=== PATIENT | female | born 1985 | race Asian ===

== ENCOUNTER → 2018-01-30 11:48 | Outpatient (CLI) | payer BC, SELFPAY ==
--- NOTE | 2018-01-30 | DI.RAD.S_ITS ---
PROCEDURE: XR CHEST 2V INDICATIONS: 32 year-old female with dyspnea. TECHNIQUE: 2 views of the chest were acquired. COMPARISON: None. FINDINGS: Surgical changes and devices: None. Lungs and pleura: No pleural effusions or pneumothorax. Lungs are clear. Mediastinum: Mediastinal contours are normal. Heart size is normal. Bones and chest wall: No suspicious bony abnormalities. Soft tissues appear unremarkable. IMPRESSION: No acute cardiopulmonary disease. Dictated by: Aidan Sol M.D. on 01/30/2018 at 12:22 Approved by: Aidan Sol M.D. on 01/30/2018 at 12:22
== END ==
PROVIDERS: Family Provider Family Medicine; PCP Family Medicine; Visit Provider Family Medicine
DX: R06.00 Dyspnea, unspecified (principal)
CPT/HCPCS: 71046

== ENCOUNTER → 2018-01-31 11:48 | Outpatient (CLI) | payer BC, SELFPAY ==
--- NOTE | 2018-02-03 07:59 | PM.PFT.1 ---
Pulmonary Function Test Referral & Results Date Patient Seen: 01/31/18 Requesting provider: Galilea Goddard Results: The spirometry demonstrates an FVC of 2.49 L which is 71% of predicted. The FEV1 was measured at 1.98 L which is 67% of predicted. The FEV1/FVC ratio was 79 which is 95% of predicted. Following the administration of bronchodilator there was no appreciable change. Lung volumes show an SVC of 2.50 L which is 74% of predicted. The diffusing capacity was measured at 24.3 to which is 112% of predicted. The maximum voluntary ventilation was normal. Interpretation: This study demonstrates mild obstructive lung disease without evidence of benefit following bronchodilator administration. There also appears to be mild restrictive lung disease present based on reduction in lung volumes Clinical correlation suggested
== END ==
PROVIDERS: Family Provider Family Medicine; PCP Family Medicine; Visit Provider Family Medicine
DX: R06.00 Dyspnea, unspecified (principal)
CPT/HCPCS: 94010; 94060; 94726; 94729